=== PATIENT | female | born 1965 | race African-American/Black ===

== ENCOUNTER 2016-06-14 12:16 | Inpatient (IN) ==
[2016-06-14] MEDS ORDERED: NITROGLYCERIN 2% OINT 1 INCH/GM PACK TOP STA (14:19)
[2016-06-14] MEDS ORDERED: ONDANSETRON 4 MG/2 ML VIAL IV STA (14:19)
[2016-06-14] MEDS ORDERED: ASPIRIN 325 MG TABLET PO STA (14:19)
[2016-06-14] MEDS ORDERED: METOPROLOL TARTRATE 25 MG TABLET PO STA (14:19)
[2016-06-14] MEDS ORDERED: MORPHINE 2 MG/1 ML SYRINGE IV STA (14:19)
[2016-06-14] MEDS ORDERED: ALUM/MAG/SIMETH/LIDO VISC 1:1 30 ML BOTTLE PO STA (14:19)
--- NOTE | 2016-06-14 14:23 | EKG Report ---
Stationary ECG Study [facility] ER Test Date: 06/14/2016 12:41:32 PM Pat Name: KYLE WALSH Department: Room: Gender: F Etcher Enameling: Thai Marin : 1965 Requested by: Sae Angelo Order Number: [id number] Akilah MD: MARCIA JACOME Intervals [place] Rate: 78 P: 66 MO: 239 QRS: 16 QRSD: 105 T: 28 QT: 366 QTc: 399 Interpretive Statements SINUS RHYTHM WITH FIRST DEGREE AV BLOCK Electronically Signed On 06-14-16 15:10:28 CDT by MARCIA JACOME [id number]
[2016-06-14 14:28] LABS: Basophils % 0.2 % (0.0-0.8); Eosinophils # 0.1 10*3/uL (0.0-0.87); Eosinophils % 0.6 % (0.00-10.9); Hematocrit 37.5 VOL% (35.7-47.0); Hemoglobin 12.9 GM/DL (12.0-16.0); Immature Granulocytes % 0.3 %; Immature Granulocytes Absolute 0.03 #; Lymphocytes # 3.4 10*3/uL (1.4-4.0); Lymphocytes % 37.7 % (21.3-54.2); Mean Corpuscular HGB Conc 34.4 GM/DL (32-36); Mean Corpuscular Hemoglobin 29 PG (27-34); Mean Corpuscular Volume 84.8 FL (87-102); Mean Platelet Volume 11.2 FL (9.6-12.0); Monocytes # 0.5 10*3/uL (0.11-0.8); Monocytes % 5.1 % (1.7-12.7); Neutrophils # 5.1 10*3/uL (1.4-7.4); Neutrophils % 56.1 % (38.7-73.9); Platelet Count 177 T/CUMM (130-400); Red Blood Count 4.42 MC/CUMM (3.8-5.5)
--- NOTE | 2016-06-14 14:40 | Emergency Department Note ---
Scott Rubin Meredith, am scribing for, and in the presence of, Sae Hutchison MD 13:49. Kianna Rubin Charles R, MD, personally performed the services described in this documentation, ascribed by Claire Chavez in my presence, and it is both accurate and complete [id number] . Arrival - Arrival Chief Complaint: Chest Pain Stated Complaint: CHEST PAINS/SOB/HEARTBURN ED Nursing Triage Note: pt ambulatory to triage with c/o having chest pain with sob. pt c/o having nausea. pt denies any vomiting . pt c/o having numbness in left arm\ Mode of Arrival: Ambulatory Limitations: No Limitations Source: Patient, Old Records Reviewed, RN Notes Reviewed Time Seen by Provider: 06/14/16 13:41 - History of Present Illness HPI Narrative: Pt is a 51 y/o black female reporting to the ED with c/o chest pain, shortness of breath, nausea, numbness in the left arm, and dizziness which onset today. She states he pain is worse with walking. Pt has a history of KS. Onset (ago): hour(s) Allergies/Adverse Reactions: Allergies Allergy/AdvReac Type Severity Reaction Status Date / Time meperidine [From Demerol] Allergy Severe UNCONSCIOUS Verified 01/29/15 08:23 Home Medications: Home Medications Medication Instructions Recorded Confirmed Type ALPRAZolam [Xanax] 0.5 mg PO TID 01/06/15 01/29/15 History HYDROcodone/ACETAMIN 10-325 [[place] 1 tablet PO Q4-6H PRN 01/06/15 01/29/15 History 10-325] Insulin Detemir [Levemir] 80 unit SUBCUT BEDTIME 01/06/15 01/29/15 History Insulin Lispro [HumaLOG] 30 unit SUBCUT TID 01/06/15 01/29/15 History Ofloxacin 0.3% Oph Soln [Ocuflox 1 drop BOTH EYES DAILY 01/06/15 01/29/15 History 0.3% Oph Soln] Aspirin [Ecotrin] 81 mg PO DAILY 01/29/15 01/29/15 History Valsartan [Diovan] 160 mg PO DAILY 06/14/16 History Review of System - Review of System 12 point system: reviewed and no additional remarkable complaints except as stated - Review of System Constitutional: Present: as per HPI, other (dizziness) Respiratory: Present: as per HPI, other (SOB) Cardiovascular: Present: as per HPI, chest pain Gastrointestinal: Present: as per HPI, nausea Neurological: Present: as per HPI, numbness (left arm ) Medical,Surgical,& Family Hx - Medical History Cardio: History of: Hypertension, [place], PVD Neurology: No history of: Seizures Endocrine: History of: Diabetes Mellitus (IDDM) Gastrointestinal: History of: GERD Musculoskeletal: History of: Back/Neck Problems - Surgical History Cardiac Surgeries: Sugical HX of: Cardiac Catheterization - Social History Smoking Status: Former smoker Frequency of Alcohol Use: None Type of Drug Use: None Exam Vital Signs: Vital Signs Temperature 97.8 F 06/14/16 12:36 Pulse Rate 79 06/14/16 12:36 Respiratory Rate 17 06/14/16 12:36 Blood Pressure 207/101 06/14/16 12:36 O2 Sat by Pulse Oximetry 97 06/14/16 12:36 - General General appearance: alert, in no apparent distress - Head Head exam: Present: atraumatic, normocephalic - Eye Eye exam: Present: normal appearance, PERRL, EOMI - ENT ENT exam: Present: mucous membranes moist, normal external ear exam - Neck Neck exam: Present: full ROM, trachea midline. Absent: tenderness, meningismus , lymphadenopathy, thyromegaly - Chest Chest inspection: Present: symmetric chest wall rise. Absent: tenderness, rash - Respiratory Respiratory exam: Present: normal lung sounds bilaterally. Absent: respiratory distress - Cardiovascular Cardiovascular exam: Present: regular rate, normal rhythm, normal heart sounds. Absent: murmur, rubs, gallop - Abdominal Exam Abdominal exam: Present: soft, normal bowel sounds. Absent: distention, tenderness - Extremities Exam Extremities exam: Present: full ROM, normal capillary refill. Absent: tenderness, pedal edema, calf tenderness - Back Exam Back exam: Present: full ROM. Absent: tenderness - Neurological Exam Neurological exam: Present: alert, oriented X3, CN II-XII intact. Absent: motor sensory deficit - Psychiatric Psychiatric exam: Present: normal affect, normal mood - Skin Skin exam: Present: warm, dry, intact, normal color Course - Consultations Consultation #1: Hospitalist will admit patient Time: 15:44 Results - Labs CBC & BMP: 06/14/16 14:10 06/14/16 14:10 Lab Results: I have reviewed the patients labs Labs: Laboratory Tests 06/14/16 14:10 WBC 9.0 RBC 4.42 Hgb 12.9 Hct 37.5 MCV 84.8 L Plt Count 177 Laboratory Tests 06/14/16 06/14/16 06/14/16 14:10 14:10 14:10 D-Dimer, Quantitative <= 0.5 Sodium 142 Potassium 4.2 Chloride 105 Carbon Dioxide 25 Anion Gap 16.2 H BUN 19 H Creatinine 0.90 BUN/Creatinine Ratio 21.00 H Glucose 209 H Troponin I < 0.015 - Diagnostic Findings Procedure: Chest x-ray: report reviewed by me (Evidence of old healed granulomatous disease with minimal atelectasis at the lung bases. ) Critical Care Time Critical Care Time: Yes Total Critical Care Time: 60 Disposition Clinical Impression: Chest pain, Hypertensive urgency Case discussed with: patient, patient's family Disposition: Still a Patient Condition: Guarded Time of Disposition: 15:44
--- NOTE | 2016-06-14 14:47 | XRay Report ---
Portable chest Date: 06/14/2016 Clinical history: Chest pain Comparison: None Technique: Portable AP sitting chest Findings: The heart is normal in size. Minimal atelectasis at the lung bases. Unremarkable mediastinum with degenerative changes. Impression: Evidence of old healed granulomatous disease with minimal atelectasis at the lung bases. PROCEDURE INTERPRETED AT [facility] DEPARTMENT OF RADIOLOGY Final Report Signed by: Dr. Dbe Rebollar
[2016-06-14 14:51] LABS: Alanine Aminotransferase 38 U/L (13-56); Albumin 4.2 G/DL (3.4-5.0); Alkaline Phosphatase 56 U/L (45-117); Aspartate Amino Transferase 17 U/L (0-37); Bilirubin,Total < 0.39 MG/DL (0.2-1.0); Blood Urea Nitrogen 19 MG/DL (7-18); Calcium 9.2 MG/DL (8.5-10.1); Glucose 209 MG/DL (74-106); Magnesium 2.1 MG/DL (1.8-2.4); Osmolality,Calculated 290.1 MOS/KG (273-304); Potassium 4.2 MMOL/L (3.5-5.1); Sodium 142 MMOL/L (136-145); Total Protein 7.2 G/DL (6.4-8.3)
[2016-06-14] MEDS ORDERED: ONDANSETRON 4 MG/2 ML VIAL ONE (15:09)
[2016-06-14] MEDS ORDERED: MORPHINE 2 MG/1 ML SYRINGE ONE (15:09)
[2016-06-14] MEDS ORDERED: NITROGLYCERIN 2% OINT 1 INCH/GM PACK TOP ONE (15:09)
[2016-06-14] MEDS ORDERED: METOPROLOL TARTRATE 25 MG TABLET ONE (15:09)
[2016-06-14] MEDS ORDERED: ASPIRIN 325 MG TABLET ONE (15:10)
[2016-06-14] MEDS ORDERED: ALUM/MAG/SIMETH/LIDO VISC 1:1 30 ML BOTTLE PO ONE (15:10)
[2016-06-14] MEDS ORDERED: hydrALAZINE 20 MG/1 ML VIAL IV STA (15:44)
[2016-06-14] MEDS ORDERED: hydrALAZINE 20 MG/1 ML VIAL ONE (15:57)
--- NOTE | 2016-06-14 16:19 | Hospitalist History & Physical ---
<Dennise Guda - Last Filed: 06/14/16 16:30> Assessment and Plan (1) Diabetes Status: Acute Assessment and plan: We will obtain HGA1C in AM. Will initiate sliding scale with regular insulin coverage and resume home insulin regimen. Current Visit: Yes Qualifiers: Diabetes mellitus type: type 1 Diabetes mellitus complication status: with unspecified complications Qualified Code(s): E10.8 - Type 1 diabetes mellitus with unspecified complications (2) Chest pain Status: Acute Assessment and plan: Due the extensive cardiac history; the patient will be admitted for a full cardiac work-up.Will obtain serial cardiac enzymes x3; if positive; will consult cardiology. Will obtain echo, carotid dopplers, lipid and thyroid panel in AM. CBC, MG, CMP, and Phos in AM. Current Visit: Yes (3) Hypertensive urgency Status: Acute Assessment and plan: Will resume home HTN meds; add clonidine for PRN use. Due the extensive medical history with is greatly associated with the increase risk for target organ damage; we will obtain renal ultrasound and urine for proteinuria to r/o TOD. Will consult nephrology if indicated. Current Visit: Yes History of Present Illness Chief complaint: "chest pain" History of present illness: This a 51 year-old female with an extensive medical history of HTN, IDDM, CO, and PVD, that presented to the ED earlier today verbalizing a complaint of chest pain and discomfort. She reported the onset of chest pain on this morning; with gradual worsening of symptoms as the day progressed. Pertinent positives: chest pain, nausea, shortness of breath, numbness affecting the left arm, and vertigo; pertinent negatives include: vomiting, jaw pain, and syncope. The patient reports remote history of CO in 2012 in which she experienced symptoms similar in nature, which ultimately warranted her to present to the ED for emergent evaluation. Home Medications Medication Instructions Recorded Confirmed Type ALPRAZolam [Xanax] 0.5 mg PO TID 01/06/15 01/29/15 History HYDROcodone/ACETAMIN 10-325 [[place] 1 tablet PO Q4-6H PRN 01/06/15 01/29/15 History 10-325] Insulin Detemir [Levemir] 80 unit SUBCUT BEDTIME 01/06/15 01/29/15 History Insulin Lispro [HumaLOG] 30 unit SUBCUT TID 01/06/15 01/29/15 History Ofloxacin 0.3% Oph Soln [Ocuflox 1 drop BOTH EYES DAILY 01/06/15 01/29/15 History 0.3% Oph Soln] Aspirin [Ecotrin] 81 mg PO DAILY 01/29/15 01/29/15 History Valsartan [Diovan] 160 mg PO DAILY 06/14/16 History Allergies Allergy/AdvReac Type Severity Reaction Status Date / Time meperidine [From Demerol] Allergy Severe UNCONSCIOUS Verified 01/29/15 08:23 Medical,Surgical,& Family Hx - Medical History Cardio: History of: Hypertension, [place], PVD Neurology: No history of: Seizures Endocrine: History of: Diabetes Mellitus (IDDM) Gastrointestinal: History of: GERD Musculoskeletal: History of: Back/Neck Problems - Surgical History Cardiac Surgeries: Sugical HX of: Cardiac Catheterization - Social History Smoking Status: Former smoker Have you smoked in the last 12 months: No Frequency of Alcohol Use: None Type of Drug Use: None Marital Status: Single Lives With:: Children Functional capacity: independent ambulation 12 point system: reviewed and no additional remarkable complaints except as stated Exam - Constitutional Vitals: Period Temp Pulse Resp BP Sys/Kamara Pulse Ox Last 24 Hr 97.8 F-97.8 F 79-79 16-17 207-207/101-101 97 General appearance: no acute distress - Head Head exam: Present: normal inspection, normocephalic, atraumatic - Eye Eye exam: Present: EOMI. Absent: nystagmus, periorbital swelling, scleral icterus Pupils: Present: LAYLA, normal accommodation. Absent: dilated, fixed - ENT ENT exam: Present: normal exam - Neck Neck exam: Present: normal inspection. Absent: lymphadenopathy, meningismus, tenderness, thyromegaly - Respiratory Respiratory exam: Present: clear to auscultation bilaterally - Cardiovascular Cardiovascular exam: Present: regular rate and rhythm. Absent: carotid bruit, diastolic murmur, gallop, JVD, rubs, systolic murmur, tachycardia - GI/Abdominal GI/Abdominal exam: Present: normal bowel sounds, soft. Absent: firm, guarding, tenderness, rebound - Extremities Exam Extremities exam: Present: normal inspection - Back Exam Back exam: Present: normal inspection - Neurological Exam Neurological exam: Present: alert, oriented X3 - Psychiatric Psychiatric exam: Present: normal affect - Skin Skin exam: Present: normal color, dry Results - Labs CBC & BMP: 06/14/16 14:10 06/14/16 14:10 Lab Results: I have reviewed the past 24 hour labs <James Choe - Last Filed: 06/14/16 17:45> Assessment and Plan (1) Chest pain Status: Acute Current Visit: Yes (2) Diabetes Status: Acute Current Visit: Yes Qualifiers: Diabetes mellitus type: type 1 Diabetes mellitus complication status: with unspecified complications Qualified Code(s): E10.8 - Type 1 diabetes mellitus with unspecified complications (3) Hypertensive urgency Status: Acute Current Visit: Yes (4) PAD (peripheral artery disease) Status: Acute Current Visit: No History of Present Illness History of present illness: Patient seen and examined by me along with LESLIE Gu, agree with her history, assessment and plan as documented. 51 y/o AAF admitted with chest pain, reports similar to previous chest pain, cath at that time was clean. Serial troponins and cardiology consult. - Constitutional Constitutional: Absent: fever(s), frequent falls - EENT Eyes: Absent: blurry vision, loss of vision Ears: Absent: decreased hearing, ear pain Nose, mouth and throat: Absent: neck pain, sore throat - Cardiovascular Cardiovascular: Absent: chest pain with activity, dyspnea - Respiratory Respiratory: Absent: dyspnea, wheezing - Gastrointestinal Gastrointestinal: Present: nausea. Absent: dysphagia - Genitourinary Genitourinary: Absent: difficulty urinating, hematuria - Musculoskeletal Musculoskeletal: Absent: back pain, joint swelling - Neurological Neurological: Absent: dizziness, focal weakness - Psychiatric Psychiatric: Absent: confusion, depression - Endocrine Endocrine: Absent: cold intolerance, heat intolerance - Hematologic/Lymphatic Hematologic/Lymphatic: Absent: easy bleeding, easy bruising Exam - Constitutional Vitals: Period Temp Pulse Resp BP Sys/Kamara Pulse Ox Last 24 Hr 97.8 F-97.8 F 79-79 16-17 207-207/101-101 97 Results - Labs CBC & BMP: 06/14/16 14:10 06/14/16 14:10
[2016-06-14 18:06] LABS: Risk Ratio 2.3; Thyroid Stimulating Hormone 0.472 uIU/ml (0.358-3.74); VLDL CHOLESTEROL 21.2 MG/DL
[2016-06-14] MEDS ORDERED: cloNIDine 0.1 MG TABLET PO PRN (20:33)
[2016-06-14] MEDS ORDERED: ALUM/MAG/SIMETH/LIDO VISC 1:1 30 ML BOTTLE PO PRN (20:33)
[2016-06-14] MEDS ORDERED: MAGNESIUM SULF RIDER 2 GM in PREMIX 1 EACH IV PRN (20:33)
[2016-06-14] MEDS ORDERED: INSULIN REGULAR 100 UNIT/ML SUBCUT ONE (20:33)
[2016-06-14] MEDS ORDERED: MAGNESIUM SULF RIDER 4 GM in PREMIX 1 EACH IV PRN (20:33)
[2016-06-14] MEDS ORDERED: ONDANSETRON 4 MG/2 ML VIAL IV PRN (20:33)
[2016-06-14] MEDS ORDERED: NITROGLYCERIN SL 0.4 MG TABLET SL PRN (20:33)
[2016-06-14] MEDS ORDERED: POTASSIUM CHLORIDE 20 MEQ TABLET PO PRN ×2 (20:33)
[2016-06-14] MEDS: SIMVASTATIN 20 MG TABLET PO SCH (21:26)
[2016-06-14] MEDS: CARVEDILOL 3.125 MG TABLET PO SCH (21:27)
[2016-06-14] MEDS: SODIUM CHLORIDE 0.45% 1,000 ML IV SCH (21:33)
--- NOTE | 2016-06-14 21:50 | EKG Report ---
Stationary ECG Study [facility] Test Date: 06/14/2016 9:48:34 PM Pat Name: KYLE WALSH Department: Room: 285 Gender: F Entry Table Operator: TONIA : 1965 Requested by: Sae Angelo Order Number: [id number] Reading MD: RENAE BELLA Intervals [place] Rate: 80 P: 123 FL: 242 QRS: 14 QRSD: 104 T: 200 QT: 379 QTc: 415 Interpretive Statements ECTOPIC ATRIAL RHYTHM WITH PROLONGED FL INTERVAL ST DEVIATION AND T-WAVE ABNORMALITY Electronically Signed On 06-15-16 06:33:19 CDT by RENAE BELLA [email or web address]
[2016-06-14 21:55] LABS: Risk Ratio 2.23; VLDL CHOLESTEROL 21.4 MG/DL
[2016-06-14] MEDS: ALPRAZolam 0.5 MG TABLET PO PRN (22:40)
--- NOTE | 2016-06-15 02:41 | EKG Report ---
Stationary ECG Study [facility] Test Date: 06/15/2016 2:40:18 AM Pat Name: KYLE WALSH Department: Room: 285 Gender: F Housing And Residence Life Director: TONIA : 1965 Requested by: Vinh Gu Order Number: [id number] Reading MD: RENAE BELLA Intervals [place] Rate: 84 P: 74 [place]: 216 QRS: 38 QRSD: 102 T: 17 QT: 399 QTc: 439 Interpretive Statements SINUS RHYTHM WITH PROLONGED [place] INTERVAL Electronically Signed On 06-15-16 06:33:48 CDT by RENAE BELLA [email or web address]
[2016-06-15 04:58] LABS: Basophils % 0.3 % (0.0-0.8); Eosinophils % 0.6 % (0.00-10.9); Hematocrit 35.2 VOL% (35.7-47.0); Hemoglobin 12.2 GM/DL (12.0-16.0); Immature Granulocytes % 0.3 %; Immature Granulocytes Absolute 0.02 #; Lymphocytes # 2.9 10*3/uL (1.4-4.0); Lymphocytes % 41.6 % (21.3-54.2); Mean Corpuscular HGB Conc 34.7 GM/DL (32-36); Mean Corpuscular Hemoglobin 29 PG (27-34); Mean Platelet Volume 11.5 FL (9.6-12.0); Monocytes # 0.4 10*3/uL (0.11-0.8); Neutrophils # 3.6 10*3/uL (1.4-7.4); Neutrophils % 52.2 % (38.7-73.9); Platelet Count 161 T/CUMM (130-400); Red Blood Count 4.19 MC/CUMM (3.8-5.5); Red Cell Distribution Width 12.1 % (9.3-17.3)
[2016-06-15 05:31] LABS: Albumin 3.5 G/DL (3.4-5.0); Bilirubin,Total 0.6 MG/DL (0.2-1.0); Calcium 8.5 MG/DL (8.5-10.1); Osmolality,Calculated 295.1 MOS/KG (273-304); Phosphorous 3.7 MG/DL (2.5-4.9); Potassium 4.1 MMOL/L (3.5-5.1)
--- NOTE | 2016-06-15 07:27 | Ultrasound Report ---
Exam: US renal Bilateral Date: 06/15/2016 4:00 AM Comparison: None Indication: Hypertension, diabetes mellitus Technique:[Multiple real-time scans were obtained of the kidneys. Color flow scans obtained. Ultrasound images were captured and stored.] Findings: The right kidney measures 99 x 54 x 42 mm. The left kidney measures 98 x 53 x 47 mm. Color flow documented in the kidneys. No masses or hydronephrosis. Impression: The kidneys are symmetric in size with no mass or hydronephrosis. PROCEDURE INTERPRETED AT [facility] DEPARTMENT OF RADIOLOGY Final Report Signed by: Dr. Deb Rebollar
--- NOTE | 2016-06-15 07:33 | EKG Report ---
Stationary ECG Study [facility] Test Date: 06/15/2016 12:25:07 AM Pat Name: KYLE WALSH Department: Room: 285 Gender: F Director Clinical Applications: : 1965 Requested by: Vinh Gu Order Number: [id number] Reading MD: MARCIA JACOME Intervals [place] Rate: 75 P: 75 ME: 242 QRS: 29 QRSD: 105 T: 28 QT: 400 QTc: 428 Interpretive Statements SINUS RHYTHM WITH FIRST DEGREE AV BLOCK Electronically Signed On 06-16-16 20:41:39 CDT by MARCIA JACOME [id number]
--- NOTE | 2016-06-15 08:48 | Physician Query Form ---
CLICK EDIT DOCUMENT TO SELECT QUERY ANSWER --> OK --> SIGN Genevieve Kaur RN, CCDS Certified Clinical Distribution Operations Supervisor W) [phone] (f) [phone] [email or web address] PROVIDERS: Make your selection(s) from the choices in EACH section by typing an "x" and enter comments in the comment section. Please use your independent medical judgment in providing your response. This request does not imply that any particular answer is desired or expected. CLINICAL INDICATORS: (Providers should not edit this section) The medical record indicates that the patient was admitted with chest pain, GERD , hypertensive Urgency, BP of 207/101, and the patient was treated with Hydralazine in the ER. (Troponin I < 0.015)--- After necessary workup, could you please state the underlying cause of the patient's chest pain, if determined. CARDIAC ETIOLOGY: ( ) Angina associated with coronary artery disease ( ) Unstable Angina ( ) Demand ischemia without an acute ND ( ) Demand ischemia with a NSTEMI ( ) STEMI ( ) NSTEMI ( ) Cardiac Arrhythmia, please specify: ( ) Solomon's Syndrome ( ) Other etiology, please specify: ( ) Clinically unable to determine NON-CARDIAC ETIOLOGY: ( ) GERD ( ) Hypertension ( ) Anterior chest wall pain ( ) Pleuritic pain ( ) Costochondritis ( ) Anxiety ( ) Musculoskeletal, please provide site: ( ) Troponin elevation due to non-cardiac cause, please specify: ( ) Other etiology, please specify: ( x) Clinically unable to determine COMMENTS: Use of terms such as suspected, likely, or probable (associated with a specific diagnosis that is being evaluated, monitored, or treated as if it exists) are acceptable and can be restated in the discharge summary if not ruled out. MTDD
[2016-06-15] MEDS: INSULIN REGULAR 100 UNIT/ML SUBCUT SCH ×4 (09:48→21:22)
[2016-06-15] MEDS: VALSARTAN 80 MG TABLET PO SCH (09:49)
[2016-06-15] MEDS: ASPIRIN EC 81 MG TABLET PO SCH (09:49)
[2016-06-15] MEDS: PANTOPRAZOLE 40 MG TABLET PO SCH (09:50)
[2016-06-15] MEDS: CARVEDILOL 3.125 MG TABLET PO SCH ×2 (09:50→21:17)
[2016-06-15] MEDS: SODIUM CHLORIDE 0.45% 1,000 ML IV SCH ×2 (09:51→22:45)
[2016-06-15] MEDS ORDERED: ALPRAZolam 0.5 MG TABLET PO PRN (11:34)
--- NOTE | 2016-06-15 11:39 | Hospitalist Progress Note ---
Assessment and Plan (1) Chest pain Status: Acute Assessment and plan: Prolonged in duration without evolutionary changes in cTnI. History of atherosclerotic peripheral vascular disease. Current Visit: Yes Qualifiers: Chest pain type: unspecified Qualified Code(s): R07.9 - Chest pain, unspecified (2) Diabetes Status: Chronic Current Visit: Yes Qualifiers: Diabetes mellitus type: type 2 Diabetes mellitus complication status: with unspecified complications Hospitalist: Subjective Interval history: 51 yo female diabetic presenting with prolonged duration of chest pain without ECG changes or elevation in cardiac troponin levels. She has known peripheral vascular disease with percutaneous intervention done in 2014. She does describe reflux type symptoms without dysphagia or significant anemia. She reports still has discomfort at this time, no history of previous GI evaluations. Exam - Constitutional Vitals: Period Temp Pulse Resp BP Sys/Kamara Pulse Ox Last 24 Hr 96.2 F-98.2 F 62-79 18-20 136-207/73-112 93-100 General appearance: normal weight, no acute distress - Respiratory Respiratory exam: Present: clear to auscultation bilaterally. Absent: rales, rhonchi, wheezes - Cardiovascular Cardiovascular exam: Present: regular rate and rhythm - GI/Abdominal GI/Abdominal exam: Present: normal bowel sounds. Absent: tenderness - Extremities Exam Extremities exam: Absent: edema - Neurological Exam Neurological exam: Present: alert, oriented X3 Results - Labs CBC & BMP: 06/15/16 04:21 06/15/16 04:21 Labs: cTnI negative X 2 - Impressions first degree AV block with normal electrocardiographic pattern Specialty Discharge - Follow Up or Referrals
--- NOTE | 2016-06-15 14:34 | Cardiology Consult Note ---
Assessment and Plan - Time spent with patient Time spent with patient: Greater than 30 minutes (Chart review, film review, interview, physical exam, documentation in order) (1) PAD (peripheral artery disease) Status: Chronic Current Visit: No (2) Chest pain Status: Acute Assessment and plan: This is atypical chest pain. The patient had accelerated hypertension at the time of her chest pain. I recommend that we treat her risk factors and an aspirin enteric-coated 81 mg daily, a statin for her diabetes and disease that has been previously documented beta-sam and continue her angiotensin receptor blockers and add calcium channel blockers and/or thiazide class diuretics to assist with good blood pressure control. I do not think she needs invasive evaluation at this time. She has a CORONA I risk of score if we make the assumption her discomfort was cardiac in nature. This would would indicate low risk situation. Risk of or myocardial infarction in 1 year is approximately 2.6% based on the CLIFF Score data registry. This is assuming that this may represent cardiac chest pain but it is seems at least atypical possibly noncardiac given the nature. She is however at some risk. I think once her blood pressures demonstrated to be under control she should be discharged home to follow-up with Dr. Lara in the next 1 week. Consider stress test if needed we will have her check a blood pressure log continue aspirin and statin. Current Visit: Yes Qualifiers: Chest pain type: unspecified Qualified Code(s): R07.9 - Chest pain, unspecified (3) Hypertensive urgency Status: Chronic Assessment and plan: Recommend tighter blood pressure control. This has improved since she has been here which brings into question compliance Current Visit: Yes (4) Diabetes Status: Chronic Current Visit: Yes Qualifiers: Diabetes mellitus type: type 2 Diabetes mellitus complication status: with unspecified complications (5) Dyslipidemia Status: Acute Assessment and plan: Although the patient has HDL and LDL numbers that are at her defined target for her disease processes. She has known peripheral vessel disease and nonobstructive coronary artery disease with comorbidities of diabetes and reformed smoking. I recommended that she be on a statin. Current Visit: Yes History of Present Illness - Data of Consult Patient: known to practice within the last 3 years Consult date: 06/15/16 - Consult Narrative Reason for consult: Chest pain History of present illness: Ms. Foss is a 51 year old female who is admitted through the emergency room yesterday with sharp intermittent chest pain has been going on for about 1 week. She states she has not been seen for this but she had to bring her car to [place] yesterday to get fixed and thought she would be checked out. She states that she sees no precipitating or relieving factors but she states now that I mentioned it may be it happens worse when she walks. She describes it as sharp. She has not had an associated nausea or diaphoresis. She has had no chest discomfort at rest. She does not list aspirin as one of her home medications. She had several episodes yesterday that were short lasting and described as sharp not associated with nausea or diaphoresis. It is unclear whether related to exertion. The patient has many EKGs with no ST segment changes. She has had 3 sets of negative cardiac biomarkers. She is a reformed smoker. She does have a history of peripheral vessel disease and received a prolonged balloon inflation 3 of the left SFA 2014 with a 5 x 40 mm balloon. At that time she had left heart catheterization that showed a proximal LAD stenosis appears to be less than 50% is very smooth and appears to be approximately 40%. At that time she presented with what was described as accelerated angina. The patient's blood pressure upon arrival to our emergency department yesterday exceeded 200/100. Her pain is gotten better with blood pressure control. Her risk factors include a family history and diabetes with reformed smoking. She states that she walks at the track across her house and can she can walk "about half way around." She does not know how far this is. She stops walking because she is "tired." CC: Vasyl Alaniz MD - Home Medications and Allergies Home Medications: Home Medications Medication Instructions Recorded Confirmed Type ALPRAZolam [Xanax] 0.5 mg PO TID PRN 01/06/15 06/15/16 History HYDROcodone/ACETAMIN 10-325 [[place] 1 tablet PO Q4-6H PRN 01/06/15 06/15/16 History 10-325] Ofloxacin 0.3% Oph Soln [Ocuflox 1 drop BOTH EYES DAILY 01/06/15 06/15/16 History 0.3% Oph Soln] Aspirin [Ecotrin] 81 mg PO DAILY 01/29/15 06/15/16 History Sitagliptin Phos/Metformin HCl 1 each PO DAILY 06/14/16 06/15/16 History [Janumet 50-1,000 mg Tablet] Valsartan [Diovan] 160 mg PO DAILY 06/14/16 06/15/16 History Insulin Glargine,Hum.rec.anlog 30 unit SUBCUT BID 06/15/16 06/15/16 History [Kemalalex KarlaLacho] Nystatin/Triamcin 1 applic TOP TID 06/15/16 06/15/16 History [Nystatin/Triamcinolone Cream] Allergies/Adverse Reactions: Allergies Allergy/AdvReac Type Severity Reaction Status Date / Time meperidine [From Demerol] Allergy Severe UNCONSCIOUS Verified 01/29/15 08:23 - Constitutional Constitutional: Absent: anorexia, increased appetite - EENT Eyes: Absent: blurry vision, diplopia Nose, mouth and throat: Absent: dysphagia, epistaxis, lip swelling - Cardiovascular Cardiovascular: Present: chest pain at rest, chest pain with activity. Absent: diaphoresis, dyspnea, dyspnea on exertion, edema, orthopnea, palpitations - Respiratory Respiratory: Absent: cough, dyspnea, dyspnea on exertion - Gastrointestinal Gastrointestinal: Absent: abdominal pain, bloating, early satiety, melena - Genitourinary Genitourinary: Absent: dysuria - Musculoskeletal Musculoskeletal: Present: arthralgias. Absent: joint swelling - Neurological Neurological: Absent: abnormal gait, behavioral changes, confusion, disequilibrium - Psychiatric Psychiatric: Present: anxiety, depression - Endocrine Endocrine: Present: cold intolerance, heat intolerance - Hematologic/Lymphatic Hematologic/Lymphatic: Present: easy bleeding, easy bruising Medical,Surgical,& Family Hx - Medical History Cardio: History of: Hypertension, PVD Neurology: No history of: Seizures Endocrine: History of: Diabetes Mellitus (IDDM) Gastrointestinal: History of: GERD Musculoskeletal: History of: Back/Neck Problems - Surgical History Cardiac Surgeries: Sugical HX of: Cardiac Catheterization (12/2014) - Social History Smoking Status: Former smoker Frequency of Alcohol Use: None Type of Drug Use: None Marital Status: Lives With:: Spouse Functional capacity: independent ambulation Physical Examination Vital Signs Temp Pulse Resp BP Pulse Ox 97.8 F 79 17 207/101 97 06/14/16 12:36 06/14/16 12:36 06/14/16 12:36 06/14/16 12:36 06/14/16 12:36 General: Present: Appears Well HEENT: Absent: Oral Lesions, PERRL Neck: Present: Supple Neck, Midline Trachea Cardiac: Present: Reg Rate and Rhythm, S4 Lungs: Present: Normal Exam Neuro: Present: Cranial Nerve 2-12 Intact Abdomen: Present: Soft, Active Bowel Sounds Skin: Present: Clear, Rash Gait: Present: Normal Gait Extremities: Present: Normal Gait. Absent: Edema Result/EKG - Labs CBC & BMP: 06/15/16 04:21 06/15/16 04:21 Labs: Laboratory Results - last 24 hr 06/14/16 06/14/16 06/14/16 20:12 21:25 21:25 WBC RBC Hgb Hct MCV MCH MCHC RDW Plt Count MPV Neut % (Auto) Lymph % (Auto) [place] % (Auto) Eos % (Auto) Baso % (Auto) Neut # (Auto) Lymph # (Auto) [place] # (Auto) Eos # (Auto) Baso # (Auto) Immature Gran % Nucleated RBC % Immature Gran # Nucleated RBCs # Sodium Potassium Chloride Carbon Dioxide Anion Gap BUN Creatinine GFR Calculation BUN/Creatinine Ratio Glucose POC Glucose Hemoglobin A1c Calculated Osmolality Calcium Phosphorus Magnesium Total Bilirubin AST ALT Alkaline Phosphatase Troponin I < 0.015 < 0.015 Total Protein Albumin Globulin Albumin/Globulin Ratio Triglycerides 107 Cholesterol 125 LDL Cholesterol 61.0 VLDL Cholesterol 21.4 HDL Cholesterol 56 Heart Disease Risk Ratio 2.23 Free T4 06/14/16 06/14/16 06/15/16 22:36 23:37 04:21 WBC RBC Hgb Hct MCV MCH MCHC RDW Plt Count MPV Neut % (Auto) Lymph % (Auto) [place] % (Auto) Eos % (Auto) Baso % (Auto) Neut # (Auto) Lymph # (Auto) [place] # (Auto) Eos # (Auto) Baso # (Auto) Immature Gran % Nucleated RBC % Immature Gran # Nucleated RBCs # Sodium Potassium Chloride Carbon Dioxide Anion Gap BUN Creatinine GFR Calculation BUN/Creatinine Ratio Glucose POC Glucose 232 H Hemoglobin A1c Calculated Osmolality Calcium Phosphorus Magnesium Total Bilirubin AST ALT Alkaline Phosphatase Troponin I < 0.015 < 0.015 Total Protein Albumin Globulin Albumin/Globulin Ratio Triglycerides Cholesterol LDL Cholesterol VLDL Cholesterol HDL Cholesterol Heart Disease Risk Ratio Free T4 06/15/16 06/15/16 06/15/16 04:21 04:21 04:21 WBC 7.0 RBC 4.19 Hgb 12.2 Hct 35.2 L MCV 84.0 L MCH 29 MCHC 34.7 RDW 12.1 Plt Count 161 MPV 11.5 Neut % (Auto) 52.2 Lymph % (Auto) 41.6 [place] % (Auto) 5.0 Eos % (Auto) 0.6 Baso % (Auto) 0.3 Neut # (Auto) 3.6 Lymph # (Auto) 2.9 [place] # (Auto) 0.4 Eos # (Auto) 0.0 Baso # (Auto) 0.0 Immature Gran % 0.3 Nucleated RBC % 0.0 Immature Gran # 0.02 Nucleated RBCs # 0.00 Sodium 142 Potassium 4.1 Chloride 105 Carbon Dioxide 26 Anion Gap 15.1 H BUN 19 H Creatinine 0.90 GFR Calculation 86 BUN/Creatinine Ratio 21.00 H Glucose 292 H POC Glucose Hemoglobin A1c 9.7 H Calculated Osmolality 295.1 Calcium 8.5 Phosphorus 3.7 Magnesium 2.0 Total Bilirubin 0.60 AST 13 ALT 29 Alkaline Phosphatase 48 Troponin I Total Protein 6.0 L Albumin 3.5 Globulin 2.5 Albumin/Globulin Ratio 1.4 Triglycerides Cholesterol LDL Cholesterol VLDL Cholesterol HDL Cholesterol Heart Disease Risk Ratio Free T4 06/15/16 06/15/16 06/15/16 04:22 08:10 11:47 WBC RBC Hgb Hct MCV MCH MCHC RDW Plt Count MPV Neut % (Auto) Lymph % (Auto) [place] % (Auto) Eos % (Auto) Baso % (Auto) Neut # (Auto) Lymph # (Auto) [place] # (Auto) Eos # (Auto) Baso # (Auto) Immature Gran % Nucleated RBC % Immature Gran # Nucleated RBCs # Sodium Potassium Chloride Carbon Dioxide Anion Gap BUN Creatinine GFR Calculation BUN/Creatinine Ratio Glucose POC Glucose 239 H 230 H Hemoglobin A1c Calculated Osmolality Calcium Phosphorus Magnesium Total Bilirubin AST ALT Alkaline Phosphatase Troponin I Total Protein Albumin Globulin Albumin/Globulin Ratio Triglycerides Cholesterol LDL Cholesterol VLDL Cholesterol HDL Cholesterol Heart Disease Risk Ratio Free T4 1.02 - EKG EKG results: interpreted by me, WNL Specialty Discharge - Follow Up or Referrals
[2016-06-15] MEDS: INSULIN NPH 100 UNIT/ML SUBCUT SCH (17:25)
[2016-06-15] MEDS: SIMVASTATIN 20 MG TABLET PO SCH (21:16)
[2016-06-15] MEDS: ALPRAZolam 0.5 MG TABLET PO PRN (21:16)
[2016-06-16 06:51] LABS: Creatinine,Urine Random 67 MG/DL; Total Protein,Urine Random 9 MG/DL
[2016-06-16] MEDS: CARVEDILOL 3.125 MG TABLET PO SCH (09:23)
[2016-06-16] MEDS: PANTOPRAZOLE 40 MG TABLET PO SCH (09:24)
[2016-06-16] MEDS: ASPIRIN EC 81 MG TABLET PO SCH (09:24)
[2016-06-16] MEDS: VALSARTAN 80 MG TABLET PO SCH (09:24)
[2016-06-16] MEDS: SODIUM CHLORIDE 0.45% 1,000 ML IV SCH (09:26)
[2016-06-16] MEDS: INSULIN NPH 100 UNIT/ML SUBCUT SCH ×2 (09:27→16:34)
[2016-06-16] MEDS: INSULIN REGULAR 100 UNIT/ML SUBCUT SCH ×4 (09:27→21:03)
[2016-06-16] MEDS ORDERED: VALSARTAN 160 MG TABLET PO SCH (10:27)
--- NOTE | 2016-06-16 10:30 | Hospitalist Progress Note ---
Assessment and Plan (1) Chest pain Status: Acute Assessment and plan: Prolonged in duration without evolutionary changes in cTnI. History of atherosclerotic peripheral vascular disease. Current Visit: Yes Qualifiers: Chest pain type: unspecified Qualified Code(s): R07.9 - Chest pain, unspecified (2) Diabetes Status: Chronic Current Visit: Yes Qualifiers: Diabetes mellitus type: type 2 Diabetes mellitus complication status: with unspecified complications (3) Hypertension Status: Chronic Assessment and plan: Will increase diovan and add dihydropyridine calcium antagonist. Stop clonidine to avoid rebound/oscillation blood pressure changes. Current Visit: Yes Hospitalist: Subjective Interval history: 51 yo female with prolonged non-cardiac chest pain with diabetes, hypertension, and atherosclerotic peripheral vascular disease was admitted to hospital. She continues with chest complaints, now headache, nausea etc. Cardiology has reviewed and recommend tightening blood pressure control with elective outpatient evaluation. BP is rather labile on Diovan only at home. Exam - Constitutional Vitals: Period Temp Pulse Resp BP Sys/Kamara Pulse Ox Last 24 Hr 96.8 F-99.2 F 65-77 16-20 137-191/71-91 95-100 General appearance: normal weight - Respiratory Respiratory exam: Present: clear to auscultation bilaterally. Absent: rales, rhonchi, wheezes - Cardiovascular Cardiovascular exam: Present: regular rate and rhythm - GI/Abdominal GI/Abdominal exam: Present: normal bowel sounds. Absent: tenderness - Extremities Exam Extremities exam: Absent: edema - Neurological Exam Neurological exam: Present: alert, oriented X3 - Psychiatric Psychiatric exam: Present: depressed Results - Labs CBC & BMP: 06/15/16 04:21 06/15/16 04:21 Specialty Discharge - Follow Up or Referrals
--- NOTE | 2016-06-16 17:25 | Cardiology Progress Note ---
Alyson Rubin April RN, am scribing for, and in the presence of, Sruthi Winston DO 17 :25. Assessment and Plan (1) Chest pain Status: Acute Current Visit: Yes Qualifiers: Chest pain type: unspecified Qualified Code(s): R07.9 - Chest pain, unspecified (2) Dyslipidemia Status: Acute Current Visit: Yes (3) Diabetes Status: Chronic Current Visit: Yes Qualifiers: Diabetes mellitus type: type 2 Diabetes mellitus complication status: with unspecified complications (4) Hypertensive urgency Status: Acute Current Visit: Yes (5) PAD (peripheral artery disease) Status: Chronic Current Visit: Yes Cardiology - PN: Subj Interval history: Ms. Foss is seen resting in bed, oxygen use via nasal biprong. She reports she generally does not feel very well this morning, stating she had nausea and vomiting, headache, and sore throat last night. This morning she continues to be nauseated and have headache. She also reports that her chest pain has continued. She describes it as a sharp pain in the center of her chest that she thinks is radiating to her back. She rates it a 7 on a scale of 1-10, it is not reproducible. She does report that she has been coughing a lot, but she does not think this pain is related to that. She does tell me that she thinks her shortness of breath is worse today than it was yesterday. Her blood pressures continue to be elevated, most recently 191/91. 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 Ms. Foss states that her pain is worse whenever she takes a deep breath it appears to be at least partially reproducible. I do not think this is anyway related to her heart. It is very noncardiac sounding. I do recommend that we control her blood pressure better before discharge. No further cardiovascular evaluation at this time. Medical management Exam (Progress Note) - Constitutional Vitals: Period Temp Pulse Resp BP Sys/Kamara Pulse Ox Last 24 Hr 96.8 F-99.2 F 65-77 16-20 137-191/71-91 95-100 General appearance: no acute distress - Head Head exam: Absent: abrasion, hematoma - Eye Eye exam: Absent: periorbital swelling, laceration to eyelids - Neck Neck exam: Absent: tenderness - Respiratory Respiratory exam: Present: clear to auscultation bilaterally, other (Oxygen via nasal biprong). Absent: accessory muscle use, chest wall tenderness - Cardiovascular Cardiovascular exam: Present: regular rate and rhythm (She has an S4) - GI/Abdominal GI/Abdominal exam: Present: normal bowel sounds, soft. Absent: distended, tenderness - Extremities Exam Extremities exam: Absent: edema - Neurological Exam Neurological exam: Present: alert, oriented X3 - Psychiatric Psychiatric exam: Present: flat affect - Skin Skin exam: Present: warm, dry Result/EKG - Labs CBC & BMP: 06/15/16 04:21 06/15/16 04:21 Lab Results: I have reviewed the past 24 hour labs Labs: Laboratory Results - last 24 hr 06/15/16 06/15/16 06/15/16 11:47 15:32 20:08 POC Glucose 230 H 222 H 249 H Ur Random Creatinine U Random Total Protein 06/16/16 06/16/16 06:29 07:38 POC Glucose 283 H Ur Random Creatinine 67 U Random Total Protein 9 - EKG EKG results: interpreted by me EKG shows: sinus rhythm Specialty Discharge - Follow Up or Referrals I, Sruthi Winston DO, personally performed the services described in this documentation, ascribed by Mercy Shields RN in my presence, and it is both accurate and complete 725 .
[2016-06-16] MEDS ORDERED: hydrALAZINE 20 MG/1 ML VIAL IV PRN (20:27)
[2016-06-16] MEDS: SIMVASTATIN 20 MG TABLET PO SCH (20:55)
[2016-06-16] MEDS: NYSTATIN/TRIAMCINOLONE CREAM 15 GM TUBE TOP SCH (21:01)
[2016-06-17] MEDS: INSULIN NPH 100 UNIT/ML SUBCUT SCH (08:26)
[2016-06-17] MEDS: INSULIN REGULAR 100 UNIT/ML SUBCUT SCH ×2 (08:27→12:18)
[2016-06-17] MEDS: NYSTATIN/TRIAMCINOLONE CREAM 15 GM TUBE TOP SCH (08:29)
[2016-06-17] MEDS: PANTOPRAZOLE 40 MG TABLET PO SCH (08:29)
[2016-06-17] MEDS ORDERED: ASPIRIN EC 81 MG TABLET PO SCH (09:00)
[2016-06-17] MEDS ORDERED: CHLORTHALIDONE 25 MG TABLET PO SCH (09:00)
[2016-06-17] MEDS ORDERED: OFLOXACIN 0.3% OPH SOLN 10 ML BOTTLE BOTH EYES SCH (09:00)
--- NOTE | 2016-06-17 11:12 | Discharge Summary ---
Hospital Course - Hospital Course Hospital Course: 51 yo female diabetes and hypertension presenting with prolonged chest pain associated with stable ECG and negative cardiac biomarkers. While in hospital blood pressure medications were adjusted for improved control. She was seen by cardiology who recommended outpatient evaluation. She is discharged to home with increased Diovan dosage and the addition of Procardia XL. She will see Dr Way as outpatient and her primary provider to adjust her diabetic regimen. Diagnosis - Discharge Diagnosis (1) Chest pain Status: Acute (2) Diabetes Status: Chronic (3) Hypertension Status: Chronic Specialty Discharge - Follow Up or Referrals Follow up with: Chalo Lara MD [Physician] - Discharge Plan - Discharge Data Disposition: Disch To Home/Self Care Discharge Diet: diabetic diet Activity: resume usual activities as tolerated - Discharge Medications New Chlorthalidone [Hygroton] 25 mg PO DAILY #30 tablet NIFEdipine XL TAB [Procardia Xl] 30 mg PO DAILY #30 tablet Valsartan [Diovan] 320 mg PO DAILY #30 tablet Continue ALPRAZolam [Xanax] 0.5 mg PO TID PRN PRN Reason: Anxiety Ofloxacin 0.3% Oph Soln [Ocuflox 0.3% Oph Soln] 1 drop BOTH EYES DAILY HYDROcodone/ACETAMIN 10-325 [[place] 10-325] 1 tablet PO Q4-6H PRN PRN Reason: Pain Aspirin [Ecotrin] 81 mg PO DAILY Sitagliptin Phos/Metformin HCl [Janumet 50-1,000 mg Tablet] 1 each PO DAILY Insulin Glargine,Hum.rec.anlog [[place] SolMpar] 30 unit SUBCUT BID Nystatin/Triamcin [Nystatin/Triamcinolone Cream] 1 applic TOP TID Discontinued Valsartan [Diovan] 160 mg PO DAILY - Follow Up or Referral - Forms/Instructions Instructions: Heart Healthy Diet (GEN), Coronary Artery Disease in Women (GEN) , Chronic Hypertension (GEN) Exam - Constitutional Vitals: Period Temp Pulse Resp BP Sys/Kamara Pulse Ox Last 24 Hr 97.2 F-98.3 F 67-85 16-20 140-191/67-109 96-100 Discharge Results Labs on day of discharge: Labs from last 24 hours 06/17/16 06/16/16 06/16/16 07:30 19:38 15:44 POC Glucose 303 H 209 H 259 H 06/16/16 11:15 POC Glucose 197 H DS: Provider Date of admission: 06/14/16 15:47 Primary care physician: . No PCP Attending physician on admission: Silvia Gu CNP Consults: 06/14/16 20:33 Consult to Cardiac Rehabilitation [CONS] Routine Reason for Cardiac Rehabilitation: Risk Factor Modification Consult to Dietitian [CONS] Routine Reason for Dietitian: Diet Recommendations Dietary Consult Consult Comment: DM 06/15/16 11:32 Consult to Physician [CONS] Routine Comment: Consulting Provider: Cardiology - [facility] When should Consulting Provider be notified: Now Consult to Specialist Group: Cardiology Person Notified: SHAJI Date Notified: 06/15/16 Time Notified: 13:55 Discharging clinician: Vasyl Alaniz MD Expected date of discharge: 06/17/16
[2016-06-17 11:44] VITALS: BP 167/89
== END 2016-06-17 13:30 | disposition home or self-care (01) | DRG 305 ==
LOC: N.ED 12:16 → N.EDINP 15:47 → SUATTDRO 15:47 → N.TELEN 19:48
PROVIDERS: ADMIT Nurse Practitioner; ATTEND Internal Medicine Cardiovascular Disease

== ENCOUNTER 2020-10-20 12:06 | Observation (INO) ==
[2020-10-20 12:38] LABS: Basophils % 0.6 % (0.0-0.8); Eosinophils # 0.1 10*3/uL (0.0-0.87); Eosinophils % 1.3 % (0.00-10.9); Hemoglobin 13.2 GM/DL (12.0-16.0); Immature Granulocytes % 0.6 %; Immature Granulocytes Absolute 0.04 #; Lymphocytes # 2.6 10*3/uL (1.4-4.0); Lymphocytes % 41.6 % (21.3-54.2); Mean Corpuscular HGB Conc 34.7 GM/DL (32-36); Mean Corpuscular Volume 83.7 FL (87-102); Mean Platelet Volume 11.4 FL (9.6-12.0); Monocytes % 6.8 % (1.7-12.7); Neutrophils % 49.1 % (38.7-73.9); Platelet Count 173 T/CUMM (130-400); Red Blood Count 4.54 MC/CUMM (3.8-5.5); Red Cell Distribution Width 12.4 % (9.3-17.3); White Blood Count 6.3 T/CUMM (4-12)
[2020-10-20 12:49] LABS: PT Patient Result 10.9 SECS (10.5-12.0); Partial Thromboplastin Time 25.5 SECS (23.9-33.8)
[2020-10-20 13:03] LABS: Albumin 4.4 G/DL (3.4-5.0); Bilirubin,Total 0.4 MG/DL (0.20-1.00); Osmolality,Calculated 291.4 MOS/KG (273-304); Potassium 4.3 MMOL/L (3.5-5.1); Total Protein 7.5 G/DL (6.4-8.2)
[2020-10-20] MEDS ORDERED: MORPHINE 2 MG/1 ML SYRINGE IV PRN (14:43)
[2020-10-20] MEDS ORDERED: GLUCAGON 1 MG VIAL IM PRN (14:43)
[2020-10-20] MEDS ORDERED: ONDANSETRON 4 MG/2 ML VIAL IV PRN (14:43)
[2020-10-20] MEDS ORDERED: DEXTROSE 50% 25 GM/50 ML VIAL IV PRN (14:43)
[2020-10-20] MEDS ORDERED: ACETAMINOPHEN 325 MG TABLET PO PRN (14:43)
[2020-10-20] MEDS: ASPIRIN EC 81 MG TABLET PO SCH (15:26)
[2020-10-20 15:36] LABS: Risk Ratio 1.75; VLDL Cholesterol 14.6 MG/DL
[2020-10-20] MEDS: INSULIN LISPRO 100 UNIT/ML SUBCUT SCH ×2 (16:33→22:21)
[2020-10-20] MEDS: ENOXAPARIN 40 MG/0.4 ML SYRINGE SUBCUT SCH (16:37)
[2020-10-20] MEDS ORDERED: NITROGLYCERIN 2% OINT 1 INCH/GM PACK TOP STA (19:31)
[2020-10-21 05:42] LABS: Basophils % 0.6 % (0.0-0.8); Eosinophils # 0.1 10*3/uL (0.0-0.87); Eosinophils % 1.1 % (0.00-10.9); Hematocrit 36.7 VOL% (35.7-47.0); Immature Granulocytes % 0.3 %; Immature Granulocytes Absolute 0.02 #; Lymphocytes # 2.8 10*3/uL (1.4-4.0); Lymphocytes % 40.2 % (21.3-54.2); Mean Corpuscular HGB Conc 32.7 GM/DL (32-36); Mean Corpuscular Volume 86.6 FL (87-102); Mean Platelet Volume 11.8 FL (9.6-12.0); Monocytes % 7.3 % (1.7-12.7); Neutrophils % 50.5 % (38.7-73.9); Platelet Count 164 T/CUMM (130-400); Red Blood Count 4.24 MC/CUMM (3.8-5.5); Red Cell Distribution Width 12.5 % (9.3-17.3)
[2020-10-21 06:04] LABS: Calcium 9.1 MG/DL (8.5-10.1); Osmolality,Calculated 279.8 MOS/KG (273-304); Potassium 3.9 MMOL/L (3.5-5.1)
[2020-10-21] MEDS ORDERED: NITROGLYCERIN SL 0.4 MG TABLET SL PRN (07:35)
[2020-10-21] MEDS ORDERED: carvediloL 6.25 MG TABLET PO SCH (09:00)
[2020-10-21] MEDS: GABAPENTIN 300 MG CAPSULE PO SCH ×2 (09:30→21:09)
[2020-10-21] MEDS: INSULIN LISPRO 100 UNIT/ML SUBCUT SCH ×4 (09:30→21:09)
[2020-10-21] MEDS: ASPIRIN EC 81 MG TABLET PO SCH (09:30)
[2020-10-21] MEDS: CITALOPRAM 20 MG TABLET PO SCH (09:30)
[2020-10-21] MEDS: PARoxetine 20 MG TABLET PO SCH (09:30)
[2020-10-21] MEDS: OFLOXACIN 0.3% OPH SOLN 5 ML BOTTLE BOTH EYES SCH (10:19)
[2020-10-21] MEDS ORDERED: POTASSIUM CHLORIDE RIDER 10 MEQ/100 ML PREMIX IV PRN (15:58)
[2020-10-21] MEDS ORDERED: MAGNESIUM SULF RIDER 2 GM/50 ML PREMIX IV PRN (15:58)
[2020-10-21] MEDS: ENOXAPARIN 40 MG/0.4 ML SYRINGE SUBCUT SCH (16:39)
[2020-10-21] MEDS: lisinopriL 5 MG TABLET PO SCH (16:40)
[2020-10-21] MEDS: carvediloL 12.5 MG TABLET PO SCH (16:40)
[2020-10-21] MEDS: LATANOPROST 0.005% OPH SOLN 2.5 ML BOTTLE BOTH EYES SCH (21:16)
[2020-10-22] MEDS: SODIUM CHLORIDE 0.9% 1,000 ML IV SCH ×3 (03:45→22:01)
[2020-10-22 05:35] LABS: Basophils % 0.6 % (0.0-0.8); Eosinophils # 0.1 10*3/uL (0.0-0.87); Eosinophils % 1.5 % (0.00-10.9); Hematocrit 37.2 VOL% (35.7-47.0); Hemoglobin 12.5 GM/DL (12.0-16.0); Immature Granulocytes % 0.4 %; Immature Granulocytes Absolute 0.03 #; Lymphocytes # 2.9 10*3/uL (1.4-4.0); Lymphocytes % 43.4 % (21.3-54.2); Mean Corpuscular HGB Conc 33.6 GM/DL (32-36); Mean Corpuscular Volume 85.7 FL (87-102); Monocytes % 5.9 % (1.7-12.7); Neutrophils % 48.2 % (38.7-73.9); Platelet Count 163 T/CUMM (130-400); Red Blood Count 4.34 MC/CUMM (3.8-5.5); White Blood Count 6.7 T/CUMM (4-12)
[2020-10-22 05:49] LABS: Calcium 9.3 MG/DL (8.5-10.1)
[2020-10-22 05:50] LABS: Calcium 9.3 MG/DL (8.5-10.1); Osmolality,Calculated 282.8 MOS/KG (273-304)
[2020-10-22] MEDS ORDERED: diphenhydrAMINE CAP 50 MG CAPSULE PO ONE (06:30)
[2020-10-22] MEDS ORDERED: DIAZEPAM 5 MG TABLET PO ONE (06:30)
[2020-10-22] MEDS ORDERED: LIDOCAINE 1% 20 ML VIAL ONE (07:09)
[2020-10-22] MEDS ORDERED: VERAPAMIL 5 MG/2 ML VIAL ONE (07:10)
[2020-10-22] MEDS ORDERED: NITROGLYCERIN DRIP 50 MG/250 ML BOTTLE IV ONE (07:10)
[2020-10-22] MEDS ORDERED: MIDAZOLAM 2 MG/2 ML VIAL ONE (07:34)
[2020-10-22] MEDS ORDERED: HYDROmorphone 2 MG/1 ML VIAL ONE (07:35)
[2020-10-22] MEDS ORDERED: ENOXAPARIN 60 MG/0.6 ML SYRINGE ONE (07:58)
[2020-10-22] MEDS ORDERED: PRASUGREL 10 MG TABLET ONE (08:23)
[2020-10-22] MEDS: INSULIN LISPRO 100 UNIT/ML SUBCUT SCH ×5 (08:45→23:44)
[2020-10-22] MEDS ORDERED: ZALEPLON 5 MG CAPSULE PO PRN (08:47)
[2020-10-22] MEDS ORDERED: amLODIPine 5 MG TABLET PO ONE (08:49)
[2020-10-22] MEDS ORDERED: amLODIPine 5 MG TABLET PO SCH (09:00)
[2020-10-22] MEDS: GABAPENTIN 300 MG CAPSULE PO SCH ×2 (10:03→21:59)
[2020-10-22] MEDS: OFLOXACIN 0.3% OPH SOLN 5 ML BOTTLE BOTH EYES SCH (10:03)
[2020-10-22] MEDS: carvediloL 12.5 MG TABLET PO SCH ×2 (10:03→16:08)
[2020-10-22] MEDS: lisinopriL 5 MG TABLET PO SCH (10:03)
[2020-10-22] MEDS: PARoxetine 20 MG TABLET PO SCH (10:04)
[2020-10-22] MEDS: ASPIRIN EC 81 MG TABLET PO SCH (10:04)
[2020-10-22] MEDS: CITALOPRAM 20 MG TABLET PO SCH (10:04)
[2020-10-22] MEDS: ENOXAPARIN 40 MG/0.4 ML SYRINGE SUBCUT SCH (14:25)
[2020-10-22] MEDS: LATANOPROST 0.005% OPH SOLN 2.5 ML BOTTLE BOTH EYES SCH (22:12)
[2020-10-23] MEDS: INSULIN LISPRO 100 UNIT/ML SUBCUT SCH ×2 (03:29→07:22)
[2020-10-23 04:58] LABS: Basophils % 0.3 % (0.0-0.8); Eosinophils # 0.1 10*3/uL (0.0-0.87); Eosinophils % 2.3 % (0.00-10.9); Hematocrit 36.7 VOL% (35.7-47.0); Hemoglobin 12.2 GM/DL (12.0-16.0); Immature Granulocytes % 0.3 %; Immature Granulocytes Absolute 0.02 #; Lymphocytes # 2.3 10*3/uL (1.4-4.0); Lymphocytes % 37.8 % (21.3-54.2); Mean Corpuscular HGB Conc 33.2 GM/DL (32-36); Mean Corpuscular Volume 86.6 FL (87-102); Mean Platelet Volume 12.1 FL (9.6-12.0); Neutrophils % 53.3 % (38.7-73.9); Platelet Count 155 T/CUMM (130-400); Red Blood Count 4.24 MC/CUMM (3.8-5.5); Red Cell Distribution Width 12.2 % (9.3-17.3); White Blood Count 6.2 T/CUMM (4-12)
[2020-10-23 05:24] LABS: Calcium 8.8 MG/DL (8.5-10.1); Osmolality,Calculated 287.5 MOS/KG (273-304); Potassium 4.1 MMOL/L (3.5-5.1)
[2020-10-23] MEDS: SODIUM CHLORIDE 0.9% 1,000 ML IV SCH (05:42)
[2020-10-23 08:06] VITALS: BP 179/70
[2020-10-23] MEDS: ASPIRIN EC 81 MG TABLET PO SCH (08:51)
[2020-10-23] MEDS: PARoxetine 20 MG TABLET PO SCH (08:51)
[2020-10-23] MEDS: GABAPENTIN 300 MG CAPSULE PO SCH (08:51)
[2020-10-23] MEDS: CITALOPRAM 20 MG TABLET PO SCH (08:51)
[2020-10-23] MEDS: OFLOXACIN 0.3% OPH SOLN 5 ML BOTTLE BOTH EYES SCH (08:51)
[2020-10-23] MEDS: carvediloL 12.5 MG TABLET PO SCH (08:51)
[2020-10-23] MEDS ORDERED: amLODIPine 10 MG TABLET PO SCH (09:00)
[2020-10-23] MEDS ORDERED: lisinopriL 10 MG TABLET PO SCH (09:00)
[2020-10-23] MEDS ORDERED: PRASUGREL 10 MG TABLET PO SCH (09:00)
[2020-10-23] MEDS ORDERED: ROSUVASTATIN 20 MG TABLET PO SCH (21:00)
== END 2020-10-23 10:55 | disposition home or self-care (01) ==
LOC: EDUNIT# → N.EDINP 12:06 → N.ED 12:06 → SUATTDRO 14:43 → N.EDINP 20:33 → N.TELES 20:44
PROVIDERS: ADMIT Internal Medicine; ATTEND Internal Medicine
PROC: CLCCHCL (ICD-10-PCS; 2020-10-22 07:45)